=== PATIENT | female | born 1960 | race Caucasian/White ===

== ENCOUNTER → 2020-10-02 10:10 | Outpatient (BNVA) | payer BC, SELFPAY | PROVIDERS: PCP Internal Medicine; Visit Provider Internal Medicine Pulmonary Disease ==

== ENCOUNTER 2020-10-29 12:43 | Outpatient (REF) | payer BC, SELFPAY ==
--- NOTE | ~2020-10-29 | CT_ITS ---
EXAMINATION: CT CHEST WITHOUT CONTRAST CLINICAL INFORMATION: Other nonspecific abnormal finding of lung field COMPARISON: None TECHNIQUE: Multidetector volumetric CT imaging of the chest was done. Axial MIP volume rendering provided. Sagittal and coronal reformatted images were obtained. This CT examination was performed using dose optimization techniques as appropriate, variously including the following: *Automated exposure control *Adjustment of mA and/or kV according to patient size (this includes techniques or standardized protocols for targeted exams where dose is matched to indication/reason for exam; i.e. extremities or head) *Use of iterative reconstruction technique DLP: 474 mGy-cm FINDINGS: BUSINESS PROPOSAL REP: Unremarkable LUNGS: There is a 1 cm peripheral or subpleural cyst at the right lung apex. There is a 3 mm calcified left upper lobe nodule axial image 146 series 4. There is linear scarring or subsegmental atelectasis seen in the posterior superior segment of the left lower lobe axial image 2:30 series 4. Is a 2 mm calcified right lower lobe nodule axial image 288 series 4. There is a 2 mm calcified left lower lobe nodule axial image 288 series 4 there is a 3 mm calcified right middle lobe nodule axial image 368 series 4. There is a 4 mm calcified right lower lobe nodule axial image 398 series 4. No evidence of interstitial lung disease, emphysema or bronchiectasis is seen. No endobronchial or endotracheal lesion is seen. MEDIASTINUM: There is mild coronary artery calcification. The mediastinum is otherwise normal. PLEURA: There is no pleural effusion. No pleural mass or thickening. AXILLA: No lymphadenopathy. UPPER ABDOMEN: There is a small calcification in the spleen probably related to old granulomatous disease. OSSEOUS STRUCTURES: There are degenerative changes of the spine. CT/CT chest wo con IMPRESSION: Calcified pulmonary nodules suggestive of old granulomatous disease. Mild coronary artery calcification.
--- NOTE | 2020-10-29 13:46 | PFT_ITS ---
INDICATIONS: COPD and post COVID syndrome. SPIROMETRY: The FEV1 to FVC 81% with an FEV1 of 2.08 L, which is 86% predicted and an FVC of 2.58 L, which is predicted. No significant response to bronchodilators noted. Maximum voluntary ventilation 95% predicted. LUNG VOLUMES: Total lung capacity 104% predicted with an expiratory reserve volume of 14% predicted likely from an elevated BMI. DIFFUSION CAPACITY: DLCO 98% predicted. COMPARISONS: None. INTERPRETATION: No obstructive nor restrictive ventilatory defects identified. No significant response to bronchodilators noted. Normal maximum voluntary ventilation. Lung volumes are within normal limits except for decrease in the expiratory reserve volume, which could be secondary to her elevated BMI. Diffusion capacity is within normal limits. If asthma or reactive airways is in the differential, methacholine challenge may be helpful in assessing for hyper-reactive airways, and otherwise clinical correlation warranted. Frantz Lyon MD MR/MODL / [id number]
== END 2020-10-29 12:44 | disposition home or self-care (01) ==
LOC: HO.RESP 12:43
PROVIDERS: PCP Internal Medicine; Visit Provider Internal Medicine Pulmonary Disease
DX: R91.8 Other nonspecific abnormal finding of lung field (principal); J44.9 Chronic obstructive pulmonary disease, unspecified
CPT/HCPCS: 71250; 94060; 94727; 94729

== ENCOUNTER → 2020-10-30 11:08 | Outpatient (BNVA) | payer BC, SELFPAY | PROVIDERS: PCP Internal Medicine; Visit Provider Internal Medicine Pulmonary Disease ==

== ENCOUNTER → 2020-12-30 10:18 | Outpatient (BNVA) | payer BC, SELFPAY | PROVIDERS: PCP Internal Medicine; Visit Provider Internal Medicine Pulmonary Disease ==